=== PATIENT | female | born 1935 | race Caucasian/White ===

== ENCOUNTER 2018-07-05 06:08 | Day surgery (SDC) | payer MEDICARE, OTHER ==
[2018-07-04 11:25] LABS: BASOPHILS % (AUTO) 0.2 % (0-1); EOSINOPHILS % (AUTO) 0 % (0-6); HEMATOCRIT 39.7 % (35.0-45.0); HEMOGLOBIN 13.4 g/dl (12.0-16.0); LYMPHOCYTES # (AUTO) 1.7 X10'3 (1.1-4.8); LYMPHOCYTES % (AUTO) 39.8 % (21-51); MEAN CORPUSCULAR HEMOGLOBIN 30.1 PG (27.0-31.0); MEAN CORPUSCULAR HGB CONC 33.8 % (33.0-36.5); MEAN CORPUSCULAR VOLUME 89.2 FL (78-98); MEAN PLATELET VOLUME 8.4 FL (7.4-10.4); MONOCYTES # (AUTO) 0.4 X10'3 (0-0.9); MONOCYTES % (AUTO) 9.7 % (2-12); NEUTROPHILS # (AUTO) 2.2 X10'3 (1.8-7.7); NEUTROPHILS % (AUTO) 50.3 % (42-75); PLATELET COUNT 264 X10'3 (140-440); RED BLOOD COUNT 4.45 X10'6 (4.20-5.60); RED CELL DISTRIBUTION WIDTH 13.4 % (11.5-14.5); WHITE BLOOD COUNT 4.4 X10'3 (4.5-11.0)
[2018-07-04 11:37] LABS: ANION GAP 7 (8-16); BLOOD UREA NITROGEN 15 MG/DL (7-18); BUN/CREATININE RATIO 27.8 (6.6-38.0); CALCIUM 9.3 MG/DL (8.5-10.1); CHLORIDE 103 MMOL/L (99-107); CREATININE 0.54 MG/DL (0.40-0.90); GLUCOSE 97 MG/DL (70-104); POTASSIUM 4.1 MMOL/L (3.5-5.1); SODIUM 139 MMOL/L (135-145); eGFR > 90 ML/MIN
[2018-07-04 11:39] LABS: PARTIAL THROMBOPLASTIN TIME 31 SECONDS (22-32); PROTHROMBIN TIME 10.1 SECONDS (9.0-12.0)
[2018-07-05] VITALS (11 sets, daily range): BP systolic 126–157; BP diastolic 43–63
[~2018-07-05] VITALS: Ht 165.1 cm; Wt 66.8 kg
[2018-07-05] MEDS ORDERED: normal saline 1000ml 1,000 ML IV SCH (06:25)
[2018-07-05] MEDS ORDERED: LORazepam 0.5 MG tablet PO PRN (06:25)
[2018-07-05] MEDS ORDERED: diphenhydrAMINE 25mg capsule PO PRN (06:25)
[2018-07-05] MEDS ORDERED: RIVA15TA PO (07:01)
[2018-07-05] MEDS ORDERED: SOTA80TA PO (07:01)
[2018-07-05] MEDS ORDERED: LIDOcaine/PRILOcaine 5gm cream TP ONE (07:40)
[2018-07-05] MEDS ORDERED: midazolam 2 mg/2 ml injection ONE (08:00)
[2018-07-05] MEDS ORDERED: heparin 1,000unit/ml 10ml vial 10 ML ONE (08:00)
[2018-07-05] MEDS ORDERED: iohexol 350 MG/ML 50ML vial IV ONE ×2 (08:00→09:21)
[2018-07-05] MEDS ORDERED: fentaNYL/PF 50MCG/1 ML 2ML syringe ONE (08:00)
[2018-07-05] MEDS ORDERED: iohexol 350MG/ML 100ml bottle IV ONE (08:00)
[2018-07-05] MEDS ORDERED: LIDOcaine 1% (10mg/ml)w/preservative injection 20ml MDV ONE (08:00)
[2018-07-05] MEDS ORDERED: nitroGLYCERIN-Tridil 50MG/D5W 250 ML IV ONE (08:01)
[2018-07-05] MEDS ORDERED: verapamil 2.5 mg/ml inj IV ONE (08:06)
[2018-07-05 09:56] LABS: ISTAT HGB ART 9.9 g/dl (12.0-16.0); ISTAT Hct ART 29 %PCV (35-48); ISTAT O2 SATURATION ARTERIAL 97 % (95-98); ISTAT SOURCE ART
[2018-07-05 09:56] LABS: ISTAT Hct MIX 29 %PCV (35-48); ISTAT O2 SATURATION MIX VENOUS 77 % (60-80); ISTAT SOURCE MIX
== END 2018-07-05 13:52 | disposition home or self-care (01) ==
LOC: SSTAY O 06:08
PROVIDERS: ATTEND Internal Medicine Cardiovascular Disease
DX: I25.10 Atherosclerotic heart disease of native coronary artery without angina pectoris (principal); I48.0 Paroxysmal atrial fibrillation; E78.5 Hyperlipidemia, unspecified; M85.88 Other specified disorders of bone density and structure, other site; F41.8 Other specified anxiety disorders; I47.2 Ventricular tachycardia; I34.0 Nonrheumatic mitral (valve) insufficiency; Z86.79 Personal history of other diseases of the circulatory system; Z90.5 Acquired absence of kidney; Z88.0 Allergy status to penicillin; Z88.5 Allergy status to narcotic agent; Z88.6 Allergy status to analgesic agent; Z96.653 Presence of artificial knee joint, bilateral; Z79.899 Other long term (current) drug therapy; Z98.890 Other specified postprocedural states; Z83.6 Family history of other diseases of the respiratory system; Z82.49 Family history of ischemic heart disease and other diseases of the circulatory system; Z83.3 Family history of diabetes mellitus
CPT/HCPCS: 36415; 80048; 82803; 85014; 85025; 85610; 85730; 93005; 93460; 99152; 99153; J1644; J2001; J2250; J3010; J7030; Q0163; Q9967; A4620; C1769; J3490